=== PATIENT | female | born 1955 | race Caucasian/White ===

== ENCOUNTER 2020-01-24 07:13 | Day surgery (SDC) | payer MEDICARE, OTHER, SELFPAY ==
[2020-01-24 07:33] VITALS: BP 122/68; PULSE 60; RESP 16; TEMP 36.5; O2SAT 97
[2020-01-24] MEDS: Tropicam./Phenyleph. (1/2.5%) 5 ML BTL OS ×3 (07:41→07:50)
[2020-01-24] MEDS: Tetracaine 0.5% 4 ML BTL OS (08:13)
[2020-01-24] MEDS: Povidone-Iodine Ophth 30 ML BTL (08:14)
[2020-01-24] MEDS: Lidocaine 2% Jelly 6 ML SYR (08:14)
[2020-01-24] MEDS: Lidocaine 1% Pres-Free 5 ML VIAL (08:20)
[2020-01-24] MEDS: Duovisc Viscoelastic System EACH 1 EACH (08:22)
[2020-01-24] MEDS: Balanced Salt Soln.-PLUS 500 ML BAG (08:23)
[2020-01-24] MEDS: Moxifloxacin-PF 1 MG/ML VIAL (08:26)
--- NOTE | 2020-01-24 08:42 | W.PM.DSUDISC ---
Discharge Plan Disposition Patient Disposition: HOME Condition: Good Discharge Details Attending Provider: Edy Frederick Primary Care Provider: Natasha Arreguin Home Meds and New Rx's Prescriptions: No Action amlodipine 5 mg Tablet 5 mg PO DAILY RF: 0 ibuprofen 200 mg Tablet 800 mg PO DAILY PRNRF: 0 fluoxetine 20 mg Capsule 20 mg PO DAILY RF: 0 Glucosamine Chondroitin 550-30-1 mg Capsule 1 cap PO DAILY RF: 0 Discharge Instructions Stand Alone Forms: Post-op Topical Cataract, Joel Boyle (DSU) Discharge Orders Discharge Orders: Discharge Order (Routine); Ordered 01/24/20 Ordered By: Edy Frederick DS: Diagnosis Discharge Diagnosis (1) Nuclear sclerotic cataract of left eye: Status: Resolved (2) Cortical cataract of left eye: Status: Resolved
--- NOTE | 2020-01-24 08:44 | W.PM.OP ---
Date of service: 01/24/20 Time of Service: 08:44 Operative Note Operative Note DATE OF PROCEDURE: 01/24/20 PRE-OP DIAGNOSIS: Nuclear/cortical cataract, left eye POST-OP DIAGNOSIS: same PROCEDURE: Cataract extraction using phacoemulsification with intraocular lens implant, left eye SURGEON: Edy Frederick ANESTHESIA: MAC and local (sub-tenon's anesthetic infiltration) PATHOLOGY: none sent COMPLICATIONS: None Patient was transported to: same day Patient's condition: stable Implants: [employer] / [employer] Tecnis ZCB00 Indications: Progressive decreased vision due to cataract, left eye Procedure Description: CATARACT SURGERY OPERATIVE REPORT PREOPERATIVE DIAGNOSIS: Nuclear/cortical cataract, left eye POSTOPERATIVE DIAGNOSIS: Same OPERATION: Cataract extraction using phacoemulsification with posterior chamber intraocular lens implant, left eye. IOL: IOL Dental Office Coordinator/Model: [employer] / RICHARD Tecnis ZCB00 IOL Power: + 21.50 diopters IOL Serial Number: [id number] Optic Diameter: 6.0mm Haptic/Overall Diameter: 13.0mm PHACO INFO: [employer] Vision System with OZil and Active [employer]uidics Cumulative Dispersed Energy (CDE): 2.46 seconds SURGEON: Edy Frederick MD, ÁNGEL ANESTHESIA: Monitored Anesthesia Care (MAC), with local sub-tenon's anesthetic infiltration COMPLICATIONS: None SPECIMENS: None INDICATIONS FOR PROCEDURE: The patient is a 64-year-old lady with history of diminished visual acuity in her left eye secondary to the development of nuclear and cortical cataract. She is significantly symptomatic that she desires cataract surgery and attempt to improve and maximize her vision. PROCEDURE: The correct surgical eye was identified and marked as the left eye and the pupil was dilated in the preoperative area using mydriatics and cycloplegics. The dilated pupil size was 7.0 mm. Oral sedation was administered in the form of an Imprimis MKO Melt (midazolam 3mg/ketamine 25mg/ondansetron 2mg). The patient was brought to the operating room where cardiopulmonary monitoring was instituted and surgical time-out was performed, confirming the correct operative eye and IOL power. Topical anesthesia was administered and ophthalmic povidone-iodine 5% was instilled into the conjunctival fornices. Lidocaine gel was applied to the cornea and the jose l-ocular area was prepped with Betadine 10% solution and draped in the usual sterile fashion for intraocular surgery, including an aperture drape. A Tegaderm transparent film dressing was cut in half and used to cover the lashes and lid margins. Care was taken to sequester the lashes and lid margins under the Tegaderm dressing. A lid speculum was placed between the lids of the operative eye and the Purnima-Catie operating microscope was maneuvered into position. Lesley scissors were then used to make a conjunctival buttonhole approximately 6mm posterior to the limbus in the inferonasal quadrant. Blunt dissection was carried out to expose bare sclera, and a blunt-tipped sub-tenon?s anesthesia cannula was introduced and passed posteriorly along the globe where non-preserved plain lidocaine was injected into posterior sub-Tenon?s space. A sideport knife was used to make a paracentesis port superior/superiortemporally. Intraocular phenylephrine/lidocaine was injected into the anterior chamber. The anterior chamber was then filled with Healon Pro. A 2.4mm keratome knife was used to create a half-thickness groove at the limbus and then to construct a three-plane near-clear corneal tunnel extending 2.0mm into clear cornea in the temporal position. . A flap was raised on the anterior capsule and capsulorhexis forceps were used to complete a continuous curvilinear capsulorhexis of 5.0 mm. Balanced salt solution was then used to perform cortical cleaving hydrodissection and nuclear hydrodelineation until the lens could be freely rotated within the capsular bag. The lens nucleus was then disassembled and removed within the capsular bag and iris plane using phacoemulsification. Residual cortical material was removed using the 45-degree angled silicone I/A tip with 0.3mm port. The posterior capsule was carefully polished to remove as much residual lens epithelial cells as safely possible. The capsular bag was then inflated and the anterior chamber deepened with viscoelastic. The lens implant described above was inserted into the capsular bag using the RICHARD [place] Injector. A Kuglen hook was used to dial the IOL into position. Residual viscoelastic was then removed first from posterior to the IOL, then from the anterior chamber using the I/A handpiece. The lens implant was noted to center nicely within the capsular bag. The incisions were stromally hydrated, and the anterior chamber was reformed using BSS. Then 0.5cc of moxifloxacin 1.0mg/ml were injected into the capsular bag and anterior chamber. The incisions were checked with a Weck spear and found to be secure. Several drops of ophthalmic povidone-iodine 5% were then applied to the eye followed by two drops of Imprimis combination prednisolone/moxifloxacin/nepafenac solution. The drapes were removed and a clear plastic protective eye shield was placed over the eye. The patient was then returned to [facility] in stable condition.
[2020-01-24 09:05] VITALS: BP 125/61; PULSE 67; RESP 16; TEMP 36.3; O2SAT 96
== END 2020-01-24 09:58 | disposition home or self-care (01) ==
PROVIDERS: PCP Internal Medicine; Visit Provider Ophthalmology
PROC: (CPT 66984; principal; 2020-01-24 09:30)
DX: H25.12 Age-related nuclear cataract, left eye (principal); I73.00 Raynaud's syndrome without gangrene; F41.9 Anxiety disorder, unspecified
CPT/HCPCS: 66984; V2632